=== PATIENT | male | born 2000 | race Caucasian/White ===

== ENCOUNTER 2021-06-22 15:47 | Emergency (ER) | payer SELFPAY ==
[2021-06-22 15:58] VITALS: BP 148/86; PULSE 119; RESP 16; TEMP 37.1; O2SAT 97; BMI 22.3
--- NOTE | 2021-06-22 17:04 | ECG_ITS ---
[facility] Test Date: 2021-06-22 Pat Name: Shankar Baker Department: Room: Gender: Male Dining Room Host: : [id number] Requested By: Delano Mejia Order Number: [id number] Kevin MD: Tj Longo M.D. Measurements Intervals [place] Rate: 114 P: 86 DE: 138 QRS: 42 QRSD: 86 T: 69 QT: 305 QTc: 421 Interpretive Statements SINUS TACHYCARDIA POSSIBLE RIGHT VENTRICULAR CONDUCTION DELAY [RSR (QR) IN V1/V2] No previous ECG available for comparison Electronically Signed On 06-23-2021 4:47:21 CHEMICAL LIBRARIAN by Tj Longo M.D. [id number]
[2021-06-22 17:12] LABS: Basophils # 0.1 10^3/uL (0.0-0.1); Basophils % 0.4 %; Eosinophils % 0.2 %; Hematocrit 48.6 % (42.0-52.0); Hemoglobin 16.7 g/dL (11.7-16.6); Lymphocytes # 1.7 10^3/uL (0.8-4.8); Lymphocytes % 14.6 %; Mean Corpuscular HGB Conc 34.4 g/dL (30.0-36.0); Mean Corpuscular Hemoglobin 28.9 pg (28.0-34.0); Mean Corpuscular Volume 84.2 fl (80-94); Mean Platelet Volume 9.4 fL (7.4-10.4); Monocytes % 8.3 %; Neutrophils % 76.2 %; Nucleated Red Blood Cells % 0 %; Platelet Count 279 10^3/cmm (130-400); Red Blood Count 5.77 10^6/uL (4.1-5.3); Red Cell Distribution Width 13.1 % (12.1-15.1); White Blood Count 11.4 10^3/uL (4.0-10.0)
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
[2021-06-22] MEDS: sodium chloride 0.9% 1,000 ML 999 ML IV ×2 (17:18)
[2021-06-22 17:40] LABS: Alanine Aminotransferase 16 U/L (0-41); Albumin Level 5.3 g/dL (3.5-5.2); Alkaline Phosphatase 103 IU/L (40-130); Anion Gap 21.8 (5-19); Aspartate Amino Transferase 17 U/L (0-40); Blood Urea Nitrogen 8 mg/dL (6-20); Calcium 9.5 mg/dL (8.5-10.5); Carbon Dioxide 23 mmol/L (22-29); Chloride 97 mmol/L (98-107); Creatinine Clr Calc Pharmacy 150.7391; Globulin 3.4 g/dL (1.3-4.6); Glomerular Filtration Rate 119.8 mL/min (90-130); Glucose 87 mg/dL (65-115); Osmolality Calculated 284 mOsm/kg (285-295); Potassium 3.8 mmol/L (3.5-5.1); Sodium 138 mmol/L (136-145); Total Bilirubin 0.6 mg/dL (0.15-1.2); Total Protein 8.7 g/dL (6.6-8.7)
[2021-06-22 17:41] LABS: Troponin(5th) Baseline 6 ng/L (0-15)
[2021-06-22 17:46] LABS: D Dimer 0.29 ug/mIFEU (0-0.59)
[2021-06-22 17:50] VITALS: BP 140/104; PULSE 111; RESP 20; O2SAT 100
[2021-06-22 17:51] VITALS: PULSE 114
[2021-06-22 18:16] VITALS: BP 145/98; PULSE 105; RESP 14; O2SAT 98
== END 2021-06-22 18:16 | disposition home or self-care (01) ==
PROVIDERS: Family Medicine; Emergency Provider Emergency Medicine; PCP Physician Assistant Medical
DX: R00.2 Palpitations (principal); R07.9 Chest pain, unspecified
CPT/HCPCS: 80053; 84484; 85025; 85378; 93005; 96360; 99283; J7030

== ENCOUNTER 2021-07-21 12:58 | Emergency (ER) | payer SELFPAY ==
[2021-07-21 13:03] VITALS: BP 123/79; PULSE 101; RESP 16; TEMP 36.4; O2SAT 100
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
[2021-07-21 14:41] LABS: Basophils % 0.3 %; Eosinophils % 0.1 %; Hematocrit 48.4 % (42.0-52.0); Hemoglobin 16.1 g/dL (11.7-16.6); Lymphocytes # 1.4 10^3/uL (0.8-4.8); Mean Corpuscular HGB Conc 33.3 g/dL (30.0-36.0); Mean Corpuscular Hemoglobin 29.4 pg (28.0-34.0); Mean Corpuscular Volume 88.5 fl (80-94); Mean Platelet Volume 9.8 fL (7.4-10.4); Monocytes # 0.9 10^3/uL (0.2-0.9); Monocytes % 7.7 %; Neutrophils # 9.45 10^3/uL (1.8-7.7); Neutrophils % 79.6 %; Nucleated Red Blood Cells % 0 %; Platelet Count 242 10^3/cmm (130-400); Red Blood Count 5.47 10^6/uL (4.1-5.3); Red Cell Distribution Width 13.5 % (12.1-15.1); White Blood Count 11.9 10^3/uL (4.0-10.0)
[2021-07-21 15:07] LABS: Anion Gap 22.1 (5-19); Blood Urea Nitrogen 10 mg/dL (6-20); Calcium 9.2 mg/dL (8.5-10.5); Carbon Dioxide 22 mmol/L (22-29); Chloride 101 mmol/L (98-107); Creatinine Clr Calc Pharmacy 150.7391; Glomerular Filtration Rate 119.8 mL/min (90-130); Glucose 108 mg/dL (65-115); Lipase 46 U/L (13-60); Osmolality Calculated 292 mOsm/kg (285-295); Potassium 4.1 mmol/L (3.5-5.1); Sodium 141 mmol/L (136-145)
== END 2021-07-21 15:33 | disposition home or self-care (01) ==
PROVIDERS: Emergency Provider Nurse Practitioner Family; PCP Physician Assistant Medical
DX: S20.219A Contusion of unspecified front wall of thorax, initial encounter (principal); S20.314A Abrasion of middle front wall of thorax, initial encounter; V59.9XXA Occupant (driver) (passenger) of pick-up truck or van injured in unspecified traffic accident, initial encounter
CPT/HCPCS: 36415; 70450; 71045; 72125; 80048; 83690; 85025; 99283

== ENCOUNTER 2022-11-08 19:36 | Emergency (ER) | payer BC, SELFPAY ==
[2022-11-08 19:42] VITALS: BP 106/74; PULSE 100; RESP 16; TEMP 36.6; O2SAT 98; BMI 23.3
[2022-11-08 19:45] VITALS: BP 114/77; PULSE 107; RESP 14; O2SAT 95
[2022-11-08 20:45] VITALS: BP 104/70; PULSE 96; RESP 16; O2SAT 94
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
[2022-11-08 21:31] LABS: Basophils % 0.2 %; Hematocrit 47.6 % (42.0-52.0); Lymphocytes # 0.6 10^3/uL (0.8-4.8); Lymphocytes % 6.4 %; Mean Corpuscular HGB Conc 33.6 g/dL (30.0-36.0); Mean Corpuscular Volume 83.2 fl (80-94); Mean Platelet Volume 10.2 fL (7.4-10.4); Monocytes # 0.5 10^3/uL (0.2-0.9); Monocytes % 5.3 %; Neutrophils # 7.67 10^3/uL (1.8-7.7); Neutrophils % 87.9 %; Nucleated Red Blood Cells % 0 %; Platelet Count 178 10^3/cmm (130-400); Red Blood Count 5.72 10^6/uL (4.1-5.3); Red Cell Distribution Width 12.9 % (12.1-15.1); White Blood Count 8.7 10^3/uL (4.0-10.0)
[2022-11-08] MEDS: iohexol 350 mg/mL 500 mL Btl (per mL) IV (21:32)
[2022-11-08 21:43] VITALS: RESP 14
[2022-11-08] MEDS: ondansetron 2 mg/ML SDV 2 mL 4 MG IVP (21:43)
[2022-11-08] MEDS: sodium chloride 0.9% 1,000 ML 999 ML IV (21:43)
[2022-11-08] MEDS: ketorolac 30 mg/mL INJ 15 MG IVP ×2 (21:43→22:41)
[2022-11-08] MEDS: morphine 4 mg/mL SDV 1 mL IVP (21:43)
[2022-11-08 21:45] VITALS: BP 102/73; PULSE 102; RESP 14; O2SAT 94
[2022-11-08 22:07] LABS: Urine Appearance Hazy (CLEAR); Urine Color Yellow (Yellow)
[2022-11-08 22:08] LABS: Add Urine Microscopic? YES; Bilirubin Urine Neg (Negative); Blood Urine Neg (Negative); Glucose Urine UA Norm (Normal); Ketones Urine Negative (Negative); Leukocyte Esterase Urine 1+ (Negative); Nitrate Urine Positive (Negative); Protein Urine 1+ (Negative); Urobilinogen Urine Norm (Negative); pH Urine 6 (5-7)
[2022-11-08 22:09] LABS: RBC Urine 0-4 /hpf (0-2); Squamous Epithelial Cell Urine 0-4 /hpf (0-5); WBC Urine 0-4 /hpf (0-5)
[2022-11-08 22:15] LABS: Mucus Urine 1+ /hpf
--- NOTE | 2022-11-08 22:24 | W.ED.ABDPA2 ---
HPI - Abdominal Pain General: Chief Complaint: Abdominal Pain Stated Complaint: abdomen pain Time Seen by Provider: 11/08/22 20:40 Source: patient and family History of Present Illness: 22-year-old male presenting from urgent care. He was sent here for evaluation of abdominal pain, vomiting and diarrhea all day today. He is having pain in the periumbilical and right lower quadrant regions of his belly. No blood in the stool. No fever. No history of belly surgery, except he did have a liver laceration in 2017. MD elicited complaint: abdominal pain Location: Epigastric, Periumbilical and RLQ Quality: aching Radiation: none Migration to: no migration Associated Symptoms: Reports diarrhea, nausea and vomiting; Denies constipation, fever(s), hematochezia and melena Review of Systems Const: Denies: fever(s) ENMT: Denies: throat pain Card: Denies: chest pain Resp: Denies: dyspnea, productive cough or non-productive cough GI: Reports: nausea, vomiting and diarrhea; Denies: constipation, hematochezia or melena : Denies: flank pain or difficulty urinating Physical Exam Const: COMMON NORMALS: no acute distress GENERAL APPEARANCE: cooperative; not ill appearing and not frail appearing HENMT: COMMON NORMALS: normocephalic, atraumatic and Normal external nose present HEAD & SCALP: normocephalic and atraumatic FACE & SINUS: normal facial exam and face symmetric NOSE: Normal external nose present Eye: COMMON NORMALS: Equal, round and reactive pupils present and EOMs intact bilaterally PUPIL: Yes Equal, round and reactive pupils present Neck/C-Spine: GENERAL: Yes trachea midline Chest: CHEST: Yes Symmetrical chest wall rise Resp: COMMON NORMALS: normal respiratory effort, No retractions, No use of accessory muscles and clear to auscultation bilaterally AUSCULTATION: clear to auscultation bilaterally Cardio: COMMON NORMALS: regular rate and regular rhythm RATE: regular rate RHYTHM: regular rhythm GI: COMMON NORMALS: Normal to inspection, nondistended, normoactive bowel sounds present PALPATION: Yes Tenderness to palpation present (GI) (Periumbilical) Details: RLQ Extremity: COMMON NORMALS: no pedal edema Neuro: LUCI COMA SCALE: document GCS findings Luci coma scale eye opening: Spontaneous [place] coma scale verbal response: Orientated Luci coma scale motor response: Obey commands Luci coma scale total score: 15 SENSORY EXAM: Yes extremities (intact) Psych: COMMON NORMALS: speech normal SPEECH: Yes normal speech Skin: COMMON NORMALS: no rashes or lesions noted GENERAL SKIN EXAM: no rashes or lesions noted Course Vital Signs: Vital signs: Vital Signs Temperature 97.9 F 11/08/22 19:42 Pulse Rate 104 H 11/08/22 22:43 Respiratory Rate 14 11/08/22 22:43 Blood Pressure 112/77 11/08/22 22:43 Pulse Oximetry 94 11/08/22 22:43 Oxygen Delivery Me thod Room Air 11/08/22 21:45 MDM - Abdominal Pain Medical Decision Making CBC is normal. CRP is pending. CT of the abdomen pelvis shows a normal appendix. No hydronephrosis. Mild wall thickening and enhancement within a few loops of small bowel in the lower belly consistent with the symptoms. He will be treated symptomatically for an enteritis. Lab Data 11/08/22 20:55 11/08/22 22:03 Labs/Radiology: Radiology Impressions Abdomen/Pelvis CT 11/08/22 21:11 IMPRESSION: 1. Mild wall thickening and enhancement within a few loops of small bowel in the lower abdomen could represent mild infectious or inflammatory enteritis. No obstruction. Laboratory Results WBC 8.7 10^3/uL (4.0-10.0) 11/08/22 20:55 RBC 5.72 10^6/uL (4.1-5.3) H 11/08/22 20:55 Hgb 16.0 g/dL (11.7-16.6) 11/08/22 20:55 Hct 47.6 % (42.0-52.0) 11/08/22 20:55 MCV 83.2 fl (80-94) 11/08/22 20:55 MCH 28.0 pg (28.0-34.0) 11/08/22 20:55 MCHC 33.6 g/dL (30.0-36.0) 11/08/22 20:55 RDW 12.9 % (12.1-15.1) 11/08/22 20:55 Plt Count 178 10^3/cmm (130-400) 11/08/22 20:55 MPV 10.2 fL (7.4-10.4) 11/08/22 20:55 Neut % (Auto) 87.9 % 11/08/22 20:55 Lymph % (Auto) 6.4 % 11/08/22 20:55 [place] % (Auto) 5.3 % 11/08/22 20:55 Eos % (Auto) 0.0 % 11/08/22 20:55 Baso % (Auto) 0.2 % 11/08/22 20:55 Neut # (Auto) 7.67 10^3/uL (1.8-7.7) 11/08/22 20:55 Lymph # (Auto) 0.6 10^3/uL (0.8-4.8) L 11/08/22 20:55 [place] # (Auto) 0.5 10^3/uL (0.2-0.9) 11/08/22 20:55 Eos # (Auto) 0.0 10^3/uL (0.0-0.8) 11/08/22 20:55 Baso # (Auto) 0.0 10^3/uL (0.0-0.1) 11/08/22 20:55 Nucleated RBC % (auto) 0 % 11/08/22 20:55 Nucleated RBCs # 0.0 /100WBC 11/08/22 20:55 Sodium 133 mmol/L (136-145) L 11/08/22 22:03 Potassium 3.7 mmol/L (3.5-5.1) 11/08/22 22:03 Chloride 99 mmol/L (98-107) 11/08/22 22:03 Carbon Dioxide 23 mmol/L (22-29) 11/08/22 22:03 Anion Gap 14.7 (5-19) 11/08/22 22:03 BUN 17 mg/dL (6-20) 11/08/22 22:03 Creatinine 0.7 mg/dL (0.7-1.2) 11/08/22 22:03 GFR Calculation 138.6 mL/min (90-130) H 11/08/22 22:03 Glucose 88 mg/dL (65-115) 11/08/22 22:03 Calculated Osmolality 277 mOsm/kg (285-295) L 11/08/22 22:03 Calcium 8.8 mg/dL (8.5-10.5) 11/08/22 22:03 Total Bilirubin 0.9 mg/dL (0.15-1.2) 11/08/22 22:03 AST 11 U/L (0-40) 11/08/22 22:03 ALT 9 U/L (0-41) 11/08/22 22:03 Alkaline Phosphatase 84 U/L (40-130) 11/08/22 22:03 C-Reactive Protein 51.8 mg/L (0.0-4.9) H 11/08/22 22:03 Total Protein 6.7 g/dL (6.6-8.7) 11/08/22 22:03 Albumin 4.1 g/dL (3.5-5.2) 11/08/22 22:03 Globulin 2.6 g/dL (1.3-4.6) 11/08/22 22:03 Lipase 17 U/L (13-60) 11/08/22 22:03 Urine Color Yellow (Yellow) 11/08/22 20:40 Urine Appearance Hazy (CLEAR) A 11/08/22 20:40 Urine pH 6 (5-7) 11/08/22 20:40 Ur Specific [place] 1.030 (1.005-1.030) 11/08/22 20:40 Urine Protein 1+ (Negative) H 11/08/22 20:40 Urine Glucose (UA) Norm (Normal) 11/08/22 20:40 Urine Ketones Negative (Negative) 11/08/22 20:40 Urine Blood Neg (Negative) 11/08/22 20:40 Urine Nitrate Positive (Negative) H 11/08/22 20:40 Urine Bilirubin Neg (Negative) 11/08/22 20:40 Urine Urobilinogen Norm mg/dL (Negative) 11/08/22 20:40 Ur Leukocyte Esterase 1+ (Negative) H 11/08/22 20:40 Urine RBC 0-4 /hpf (0-2) H 11/08/22 20:40 Urine WBC 0-4 /hpf (0-5) H 11/08/22 20:40 Ur Squamous Epith Cells 0-4 /hpf (0-5) H 11/08/22 20:40 Amorphous Sediment Not Reportable 11/08/22 20:40 Urine Bacteria None /hpf (NONE) 11/08/22 20:40 Urine Mucus 1+ /hpf 11/08/22 20:40 Discharge Plan Discharge Patient Disposition: Home Clinical Impression: Enteritis Condition: Stable Prescriptions: New ondansetron 4 mg film 4 mg PO DAILY PRN (Reason: nausea and vomiting) Qty: 10 0RF Discharge Orders: Discharge ED (Routine); Ordered 11/08/22 Ordered By: Mack Ocasio Patient Instructions: Enteritis (ED) Activity Restrictions/Additional Instructions: Take the nausea medication scheduled every 4 hours while awake for the first 24 hours, then as needed. Symptomatic treatment for pain with [id number] anti-inflammatories. Return for vomiting liquids despite treatment, inability to control fever, worsening pain despite treatment, other concerning symptoms Coding Level of Care Code ED [employer] for Oswaldo Larry
[2022-11-08 22:26] LABS: Alanine Aminotransferase 9 U/L (0-41); Albumin Level 4.1 g/dL (3.5-5.2); Alkaline Phosphatase 84 U/L (40-130); Anion Gap 14.7 (5-19); Aspartate Amino Transferase 11 U/L (0-40); Blood Urea Nitrogen 17 mg/dL (6-20); C Reactive Protein 51.8 mg/L (0.0-4.9); Calcium 8.8 mg/dL (8.5-10.5); Carbon Dioxide 23 mmol/L (22-29); Chloride 99 mmol/L (98-107); Globulin 2.6 g/dL (1.3-4.6); Glomerular Filtration Rate 138.6 mL/min (90-130); Glucose 88 mg/dL (65-115); Lipase 17 U/L (13-60); Osmolality Calculated 277 mOsm/kg (285-295); Potassium 3.7 mmol/L (3.5-5.1); Sodium 133 mmol/L (136-145); Total Bilirubin 0.9 mg/dL (0.15-1.2); Total Protein 6.7 g/dL (6.6-8.7)
[2022-11-08] MEDS: dexamethasone 4 mg/mL INJ 8 MG IVP (22:40)
[2022-11-08 22:43] VITALS: BP 112/77; PULSE 104; RESP 14; O2SAT 94
--- NOTE | 2022-11-20 13:40 | DCPLANNER ---
TCM called patient due to no primary care physician - no answer at this time.
== END 2022-11-08 22:49 | disposition home or self-care (01) ==
PROVIDERS: Emergency Provider Emergency Medicine
DX: K52.9 Noninfective gastroenteritis and colitis, unspecified (principal)
CPT/HCPCS: 74177; 80053; 81001; 83690; 85025; 86140; 96361; 96374; 96375; 96376; 99285; J1100; J1885; J2270; J2405; J7030; Q9967

== ENCOUNTER → 2024-06-17 14:38 | Outpatient (BNVA) | payer BC, SELFPAY | DX: Z20.2 Contact with and (suspected) exposure to infections with a predominantly sexual mode of transmission (principal) | CPT/HCPCS: 87491; 87591; 87661 ==